=== PATIENT | female | born 1940 | race Caucasian/White ===

== ENCOUNTER 2017-06-15 09:45 | Emergency (ER) | payer OTHER ==
[2017-06-15 10:13] VITALS: BP 138/86; PULSE 62; TEMP 98.1; BMI 25.9
--- NOTE | 2017-06-15 10:18 | PDOC ---
History of Present Illness - General Chief Complaint: Constipation Stated Complaint: CONSTIPATED FOR 4 DAYS Time Seen by Provider: 06/15/17 09:51 - History of Present Illness Initial Comments: 06/15/17 10:14 Complaint: Constipation History of present illness: 76 years old past medical history significant for moderate COPD, hypertension, hyperlipidemia, diverticulitis presents to the emergency department with four-day history of constipation. Patient normally has daily bowel movements but has not had a bowel movement in 4 days. She takes a half pill of Percocet at night for her arthritis over the last few days endorses slightly less fluid consumption the normal. She denies any abdominal pain no fevers no chills very mild nausea but hasn't been able to eat and drink no chest pain or shortness of breath Past History - Travel Traveled outside of the country in the last 30 days: No Close contact w/someone who was outside of country & ill: No - Past Medical History Allergies/Adverse Reactions: Allergies Allergy/AdvReac Type Severity Reaction Status Date / Time cephalexin [Cephalexin] Allergy Severe Difficulty Verified 06/15/17 09:48 Breathing ciprofloxacin [From Cipro] Allergy Severe Difficulty Verified 06/15/17 09:49 Breathing ciprofloxacin HCl Allergy Severe Difficulty Verified 06/15/17 09:49 [From Cipro] Breathing erythromycin base Allergy Severe Difficulty Verified 06/15/17 09:48 [Erythromycin Base] Breathing STATINS-CHOLESTEROL Allergy Severe Difficulty Uncoded 06/15/17 09:49 MEDICATION Breathing Home Medications: Ambulatory Orders Olmesartan Medoxomil [Benicar -] 20 mg PO DAILY 08/18/14 Docusate Sodium [Stool Softener] 50 mg PO Q2D 06/15/17 Ferrous Sulfate [Feosol] 325 mg PO Q2D 06/15/17 Oxycodone HCl/Acetaminophen [Oxycodone-Acetaminophen 5-325] 0.25 mg PO HS Prednisone [Deltasone -] 2.5 mg PO DAILY 06/15/17 Anemia: Yes Asthma: Yes Cancer: No Cardiac Disorders: No COPD: Yes CHF: No Diabetes: No GI Disorders: Yes (diverticulosis) HTN: Yes Hypercholesterolemia: No - Surgical History Abdominal Surgery: Yes (OVARIAN CYST) - Immunization History Immunization Up to Date: Yes - Suicide/Smoking/Psychosocial Hx Smoking Status: No Smoking History: Former smoker Have you smoked in the past 12 months: No Number of Cigarettes Smoked Daily: 0 If you are a former smoker, when did you quit?: 25 YEARS AGO Information on smoking cessation initiated: No Hx Alcohol Use: No Drug/Substance Use Hx: No Substance Use Type: None Review of Systems - Review of Systems Able to Perform ROS?: Yes Comments:: 06/15/17 10:14 ROS: A complete review of 10 out of 10 review of systems is taken and is negative apart from what is previously mentioned below and in the HPI. *Physical Exam - Vital Signs Last Vital Signs Temp Pulse Resp BP Pulse Ox 98.1 F 62 16 138/86 97 06/15/17 09:47 06/15/17 09:47 06/15/17 09:47 06/15/17 09:47 06/15/17 09:47 - Physical Exam Comments: 06/15/17 10:14 Vitals: Triage Vital signs reviewed General Appearance: no acute distress, well nourished well developed, Head: Atraumatic, Neck: Supple;No Nucal rigidity Chest Wall: Nontender Cardiac: Regular rate and rhythym, no murmurs, no rubs, no gallops, Lungs: Clear to auscultation bilateral, good air movement bilaterally, Abdomen: Soft, non distended, normal bowel sounds, non tender to palpation, no rebound no guarding Rectal: No stool in the vault. Not impacted distally Extremities: Full range of motion to all extremities, no cyanosis, clubbing, or edema Skin: Warm and dry, no rashes or lesions, no rash, no petechiae Medical Decision Making - Medical Decision Making 06/15/17 10:15 Well appearing no apparent distress. No abdominal pain on examination. History and examination consistent with constipation likely secondary to dehydration versus opiate use for arthritis We discussed labs and CAT scan at this time given that the patient is well- appearing with no abdominal pain she would prefer to go home try medications at home for constipation if improvement of symptoms she will follow-up with her doctor If symptoms do not improve if the patient develops a fever or any abdominal pain appears she will return to the emergency department for additional workup Findings, the need for follow-up and strict return instructions discussed with patient. 06/15/17 17:23 *DC/Admit/Observation/Transfer Diagnosis at time of Disposition: Constipation Qualifiers: Constipation type: other constipation type Qualified Code(s): K59.09 - Other constipation - Discharge Dispostion Disposition: HOME Condition at time of disposition: Stable Admit: No - Patient Instructions Printed Discharge Instructions: Constipation Additional Instructions: Go to the pharmacy. Purchase one bottle of magnesium citrate. Take as instructed on bottle. If still having symptoms of fullness tomorrow you can also take 1 packet of MiraLAX daily for the next 5 days. Follow-up with your doctor within 2-3 days. Return to the emergency department for any fever abdominal pain severe worsening symptoms or for any concerns.
== END 2017-06-15 10:26 | disposition home or self-care (01) ==
LOC: FER 09:45
DX: K59.09 Other constipation (principal); J44.9 Chronic obstructive pulmonary disease, unspecified; I10 Essential (primary) hypertension; E78.5 Hyperlipidemia, unspecified; Z87.891 Personal history of nicotine dependence; D64.9 Anemia, unspecified
CPT/HCPCS: 99282-25

== ENCOUNTER 2020-05-20 16:43 | Emergency (ER) | payer OTHER ==
--- NOTE | 2020-05-20 16:48 | PDOC ---
History of Present Illness - General Chief Complaint: Chest Pain Stated Complaint: CHEST PAIN Time Seen by Provider: 05/20/20 16:47 History Source: Patient, Family Exam Limitations: No Limitations - History of Present Illness Initial Comments: 80 yo F history asthma/COPD, GERD, HTN, multiple abdominal surgeries presents with abrupt onset L-sided chest pain after a heavy meal. She also states she drank alcohol last night and states it might be connected. She has had prior symptoms of reflux in the past, but this was different today. She felt nauseated to the point that she induced herself to vomit to relieve the symptoms. She states that her chest pain has resolved, but that she has been belching since that time. She also notes loud sounds from her abdomen. Denies diarrhea, constipation, f/c, SOB, leg swelling. Past History - Medical History Allergies/Adverse Reactions: Allergies Allergy/AdvReac Type Severity Reaction Status Date / Time cephalexin [Cephalexin] Allergy Severe Difficulty Verified 05/20/20 16:43 Breathing ciprofloxacin [From Cipro] Allergy Severe Difficulty Verified 05/20/20 16:43 Breathing ciprofloxacin HCl Allergy Severe Difficulty Verified 05/20/20 16:43 [From Cipro] Breathing erythromycin base Allergy Severe Difficulty Verified 05/20/20 16:43 [Erythromycin Base] Breathing STATINS-CHOLESTEROL Allergy Severe Difficulty Uncoded 05/20/20 16:43 MEDICATION Breathing Home Medications: Ambulatory Orders Olmesartan Medoxomil [Benicar -] 20 mg PO DAILY 08/18/14 Docusate Sodium [Stool Softener] 50 mg PO BID 06/15/17 Ferrous Sulfate [Feosol] 325 mg PO DAILY 06/15/17 Oxycodone HCl/Acetaminophen [Oxycodone-Acetaminophen 5-325] 0.25 mg PO HS 06/15/17 predniSONE [Deltasone -] 5 mg PO DAILY 06/15/17 Albuterol Sulfate Inhaler - [Ventolin Hfa Inhaler -] 2 inh PO Q6H PRN 05/20/20 Anemia: Yes Asthma: Yes Cancer: No Cardiac Disorders: No COPD: Yes CHF: No Diabetes: No GI Disorders: Yes (diverticulosis, GERD) HTN: Yes Hypercholesterolemia: No - Surgical History Abdominal Surgery: Yes (OVARIAN CYST) - Immunization History Immunization Up to Date: Yes - Psycho-Social/Smoking History Smoking Status: No Smoking History: Never smoked Have you smoked in the past 12 months: No Number of Cigarettes Smoked Daily: 0 If you are a former smoker, when did you quit?: 25 YEARS AGO Information on smoking cessation initiated: No - Substance Abuse Hx (Audit-C & DAST Scrn) How often the patient has a drink containing alcohol: Never Score: In Men: 4 or > Positive; In Women: 3 or > Positive: 0 Screen Result (Pos requires Nsg. Audit-10AR): Negative In the last yr the pt used illegal drug/Rx for NonMed reason: No Score: Yes response is considered Positive: 0 Screen Result (Positive result requires Nsg. DAST-10): Negative Review of Systems - Review of Systems Able to Perform ROS?: Yes Comments:: GENERAL/CONSTITUTIONAL: No fever or chills. No weakness. HEAD, EYES, EARS, NOSE AND THROAT: No change in vision. No ear pain or discharge. No sore throat. CARDIOVASCULAR: +Chest pain. No shortness of breath. RESPIRATORY: No cough, wheezing, or hemoptysis. GASTROINTESTINAL: No diarrhea or constipation. +nausea. +self-induced vomiting GENITOURINARY: No dysuria, frequency, or change in urination. MUSCULOSKELETAL: No joint or muscle swelling or pain. No neck or back pain. SKIN: No rash. NEUROLOGIC: No headache, vertigo, loss of consciousness, or change in stren gth/sensation. ENDOCRINE: No increased thirst. No abnormal weight change. HEMATOLOGIC/LYMPHATIC: No anemia, easy bleeding, or history of blood clots. ALLERGIC/IMMUNOLOGIC: No hives or skin allergy. *Physical Exam - Vital Signs Last Vital Signs Temp Pulse Resp BP Pulse Ox 98.1 F 104 H 18 158/106 H 98 05/20/20 16:43 05/20/20 16:43 05/20/20 16:43 05/20/20 16:43 05/20/20 16:43 - Physical Exam GENERAL: Awake, alert, and fully oriented, in no acute distress. Appears anxious, belching. HEAD: No signs of trauma EYES: PERRLA, EOMI, sclera anicteric, conjunctiva clear ENT: Auricles normal inspection, hearing grossly normal, nares patent, oropharynx clear without exudates. Moist mucosa NECK: Normal ROM, supple, no lymphadenopathy, JVD, or masses LUNGS: Breath sounds equal, clear to auscultation bilaterally. No wheezes, and no crackles HEART: Regular rate and rhythm, normal S1 and S2, no murmurs, rubs or gallops ABDOMEN: Soft, nontender, +hyperactive bowel sounds. No guarding, no rebound. No masses EXTREMITIES: Normal range of motion, no edema. No clubbing or cyanosis. No cor ds, erythema, or tenderness NEUROLOGICAL: Cranial nerves II through XII grossly intact. Normal speech, normal gait. Motor and sensation intact SKIN: Warm, dry, normal turgor, no rashes or lesions noted. Heart Score/ECG Review - ECG Impressions Comment:: EKG read 16:52- poss slight ST elevation in aVR, slight depression in V1 EKG read 16:56- R-sided EKG, findings in aVR again noted, V4R concave down with questionable slight elevation, less than 1mm ED Treatment Course - LABORATORY CBC & Chemistry Diagram: 05/20/20 17:17 05/20/20 16:49 Medical Decision Making - Medical Decision Making 05/20/20 16:58 Patient signed out to Dr. Chavraria at shift change. Initial EKG showed poss ALBINO in aVR, repeated, and still appeared subtle, less than 1 mm. Right-sided EKG was done, V4R noted to be concave down, but less than 1 mm elevation. Similar shape to prior EKG. We discussed at time of handoff, will await labs. Discharge - Discharge Information Problems reviewed: Yes Clinical Impression/Diagnosis: Chest pain Qualifiers: Chest pain type: other chest pain Qualified Code(s): R07.89 - Other chest pain Condition: Stable Disposition: HOME - Follow up/Referral - Patient Discharge Instructions Patient Printed Discharge Instructions: DI for Chest Pain Additional Instructions: 1) Please follow-up with your primary care doctor in the next 1-2 days. Please call tomorrow for for any urgent issues. 2) You were given a copy of the tests performed today. Please bring the results with you and review them with your primary care doctor. Your laboratory / imaging results were normal, including your cardiac enzymes and blood work. your chest x ray shows hiatal hernia, otherwise no acute process 3) If you have any worsening of symptoms or any other concerns please return to the ED immediately. Return if worsening symptoms including fevers, headache, vomiting, visual or hearing disturbances, abdominal pain, chest pain, shortness of breath, syncope, dehydration, inability to take things by mouth/vomiting, altered mental status, or worsening concerning symptoms. 4) Please continue taking your home medications as directed. Stay well hydrated and rest adequately. Make an appointment. If you cannot follow-up with your primary care doctor please return to the ED - Post Discharge Activity
[2020-05-20 16:51] VITALS: TEMP 98.1; BMI 24.0
--- OUTSIDE RECORDS SUMMARY | 2020-05-20 16:54 | XMS ---
:1940 Author Organization [facility] Support Name Relationship Address Phone RE Unavailable Unavailable Unavailable GONZALO MAGUIRE DAUGHTER [address] [place] [address] Re-disclosure Warning The records that you are about to access may contain information from federally- assisted alcohol or drug abuse programs. If such information is present, then the following federally mandated warning applies: This information has been disclosed to you from records protected by federal confidentiality rules (42 CFR part 2). The federal rules prohibit you from making any further disclosure of this information unless further disclosure is expressly permitted by the written consent of the person to whom it pertains or as otherwise permitted by 42 CFR part 2. A general authorization for the release of medical or other information is NOT sufficient for this purpose. The Federal rules restrict any use of the information to criminally investigate or prosecute any alcohol or drug abuse patient.The records that you are about to access may contain highly sensitive health information, the redisclosure of which is protected by Article 27-F of the [facility] Public Health law. If you continue you may haveaccess to information: Regarding HIV / AIDS; Provided by facilities licensed or operated by the [facility] Office of Mental Health; or Provided by the [facility] Office for People With Developmental Disabilities. If such information is present, then the following [facility] mandated warning applies: This information has been disclosed to you from confidential records which are protected by state law. State law prohibits you from making any further disclosure of this information without the specific written consent of the person to whom it pertains, or as otherwise permitted by law. Any unauthorized further disclosure in violation of state law may result in a fine or half-way sentence or both. A general authorization for the release of medical or other information is NOT sufficient authorization for further disclosure. Insurance Providers Payer name Policy type Policy ID Covered Covered constitution party's Policy P mahogany / Coverage constitution party ID relationship to [employer] orm[employer] type darling SELF PAY SP INSURANCE
[2020-05-20 17:27] LABS: BASO % 0.4 % (0-2.0); EOS % 0.6 % (0-4.5); HEMATOCRIT 45.8 % (32.4-45.2); HEMOGLOBIN 15.9 GM/dl (10.7-15.3); LYMPH % 24.5 % (8-40); MCH 33.2 pg (25.7-33.7); MCHC 34.7 g/dl (32.0-36.0); MEAN CELL VOLUME 95.5 fl (80-96); MEAN PLT VOLUME 8.6 fl (7.5-11.1); MONO % 4.6 % (3.8-10.2); NEUT % 69.9 % (42.8-82.8); PLATELET COUNT 220 K/MM3 (134-434); RBC 4.79 M/mm3 (3.60-5.2); RDW 12.3 % (11.6-15.6); WHITE BLOOD COUNT 6.8 K/mm3 (4.0-10.8)
[2020-05-20] MEDS ORDERED: METOPROLOL TARTRATE 25 MG TABLET (FP) PO ONE (17:28)
[2020-05-20] MEDS ORDERED: ASPIRIN 81 MG CHEWABLE TABLETS PO ONE (17:28)
[2020-05-20] MEDS ORDERED: ASPIRIN 81 MG CHEWABLE TABLETS ONE (17:30)
[2020-05-20] MEDS ORDERED: METOPROLOL TARTRATE 50 MG TABLET (FP) ONE (17:30)
[2020-05-20 17:35] LABS: INR 1.14 (0.82-1.09); PROTHROMBIN TIME (PATIENT) 12.7 SEC (10.2-13.0)
[2020-05-20 17:37] LABS: ALBUMIN 4.1 g/dl (3.4-5.0); BILIRUBIN,TOTAL 1.2 mg/dl (0.2-1); CALCIUM 9.7 mg/dl (8.5-10); POTASSIUM 4.2 mmol/L (3.5-5.1); TOT PROT 6.4 g/dl (6.4-8.2)
[2020-05-20] MEDS ORDERED: PANTOPRAZOLE 40 MG TABLET PO ONE (17:38)
[2020-05-20] MEDS ORDERED: PANTOPRAZOLE 40 MG TABLET ONE (17:38)
--- NOTE | 2020-05-20 18:26 | PDOC ---
*Physical Exam - Vital Signs Last Vital Signs Temp Pulse Resp BP Pulse Ox 98.1 F 92 H 18 142/73 99 05/20/20 16:43 05/20/20 18:17 05/20/20 18:17 05/20/20 18:17 05/20/20 18:17 ED Treatment Course - LABORATORY CBC & Chemistry Diagram: 05/20/20 17:17 05/20/20 16:49 - ADDITIONAL ORDERS Additional order review: Laboratory Results 05/20/20 05/20/20 05/20/20 16:49 16:49 16:49 PT with INR 12.7 INR 1.14 Sodium 138 Potassium 4.2 Chloride 103 Carbon Dioxide 25 Anion Gap 10 BUN 23.0 H Creatinine 1.0 Est GFR (CKD-EPI)AfAm 62.05 Est GFR (CKD-EPI)NonAf 53.54 Random Glucose 173 H Calcium 9.7 Total Bilirubin 1.2 H AST 25 ALT 22 Alkaline Phosphatase 64 Troponin I < 0.03 Total Protein 6.4 Albumin 4.1 05/20/20 17:17 RBC 4.79 MCV 95.5 MCHC 34.7 RDW 12.3 D MPV 8.6 Neutrophils % 69.9 Lymphocytes % 24.5 Monocytes % 4.6 Eosinophils % 0.6 Basophils % 0.4 - Medications Given in the ED: ED Medications Discontinued Medications Generic Name Dose Route Start Last Admin Trade Name Freq PRN Reason Stop Dose Admin Aspirin 324 mg 05/20/20 17:28 05/20/20 17:35 Asa - PO 05/20/20 17:29 324 mg ONCE ONE Administration Metoprolol Tartrate 25 mg 05/20/20 17:28 05/20/20 17:35 Lopressor - PO 05/20/20 17:29 25 mg ONCE ONE Administration Pantoprazole Sodium 40 mg 05/20/20 17:38 05/20/20 17:40 Protonix - PO 05/20/20 17:39 40 mg ONCE ONE Administration Medical Decision Making - Medical Decision Making 05/20/20 18:19 80-year-old woman was seen by Dr. Barker initially with complaint of substernal chest pain. She was signed out to me at [address] Barker. Patient has a history of COPD, and a large hiatal hernia, she is followed in [place] near her home. She had a normal stress test approximately 2 years ago. She had a normal echocardiogram, per her report last spring. She typically gets hiatal hernia symptoms with tightness in the xiphoid region after overeating. Today she had a large meal and then had an after meal drink, at which time she developed a severe attack of her reflux. The reflux symptoms manifested as subxiphoid pulling tightness, associated with belching and nausea. There was no radiation of the pain. There was no diaphoresis. There were no palpitations. There was no dizziness. While the pulling sensation and the location of the pain is typical for her reflux, this time it was more severe than usual. Upon arrival in the ED, the symptoms were resolving. The total duration of symptoms was approximately 20 minutes. On examination, the lungs are clear with good air entry bilaterally. The heart is regular rhythm, borderline tachycardia around 100 bpm. Abdomen is soft and nontender. Extremities are warm and well perfused with good pulses throughout, no pitting edema. EKG is reviewed. Impression: Symptoms are typical for a reflux attack. However, given patient's age, cardiac etiology to be ruled out. Plan is for 2 sets of cardiac enzymes, serial EKGs, and reevaluation. 05/20/20 19:22 Repeat troponin pending. Patient asymptomatic. Repeat blood pressure has normalized. EKG #2 shows normal sinus rhythm at a rate of 89 bpm. The axis is normal. The intervals are normal. There is no acute ST elevation or depression. There is possible atrial enlargement. There are no significant changes from EKG done earlier today, or a comparison EKG from August 18, 2014. Patient to be discharged to follow-up with her tong carrier if repeat troponin is negative. Patient endorsed to Dr. Lori Sullivan. Discharge - Discharge Information Problems reviewed: Yes Clinical Impression/Diagnosis: Chest pain Qualifiers: Chest pain type: other chest pain Qualified Code(s): R07.89 - Other chest pain; R07.8 - Other chest pain Condition: Guarded - Follow up/Referral - Patient Discharge Instructions - Post Discharge Activity
--- NOTE | 2020-05-20 19:48 | PDOC ---
*Physical Exam - Vital Signs Last Vital Signs Temp Pulse Resp BP Pulse Ox 98.1 F 86 18 126/72 99 05/20/20 16:43 05/20/20 19:04 05/20/20 19:04 05/20/20 19:04 05/20/20 19:04 ED Treatment Course - LABORATORY CBC & Chemistry Diagram: 05/20/20 17:17 05/20/20 16:49 - ADDITIONAL ORDERS Additional order review: Laboratory Results 05/20/20 05/20/20 05/20/20 16:49 16:49 16:49 PT with INR 12.7 INR 1.14 Sodium 138 Potassium 4.2 Chloride 103 Carbon Dioxide 25 Anion Gap 10 BUN 23.0 H Creatinine 1.0 Est GFR (CKD-EPI)AfAm 62.05 Est GFR (CKD-EPI)NonAf 53.54 Random Glucose 173 H Calcium 9.7 Total Bilirubin 1.2 H AST 25 ALT 22 Alkaline Phosphatase 64 Troponin I < 0.03 Total Protein 6.4 Albumin 4.1 05/20/20 17:17 RBC 4.79 MCV 95.5 MCHC 34.7 RDW 12.3 D MPV 8.6 Neutrophils % 69.9 Lymphocytes % 24.5 Monocytes % 4.6 Eosinophils % 0.6 Basophils % 0.4 - Medications Given in the ED: ED Medications Discontinued Medications Generic Name Dose Route Start Last Admin Trade Name Freq PRN Reason Stop Dose Admin Aspirin 324 mg 05/20/20 17:28 05/20/20 17:35 Asa - PO 05/20/20 17:29 324 mg ONCE ONE Administration Metoprolol Tartrate 25 mg 05/20/20 17:28 05/20/20 17:35 Lopressor - PO 05/20/20 17:29 25 mg ONCE ONE Administration Pantoprazole Sodium 40 mg 05/20/20 17:38 05/20/20 17:40 Protonix - PO 05/20/20 17:39 40 mg ONCE ONE Administration Medical Decision Making - Medical Decision Making 05/20/20 19:46 Vital Signs Temp Pulse Resp BP Pulse Ox 98.1 F 86 18 126/72 99 05/20/20 16:43 05/20/20 19:04 05/20/20 19:04 05/20/20 19:04 05/20/20 19:04 pt signed out from Dr Chavarria at 7pm pending repeat trop in summary initial labs and lytes wnl, reassuring initial trop is neg, EKGs were repeated with NSR, no st segment elevations or depressions pt has history of hiatal hernia given ppi and gi cocktail here with relief on reassessment, feels improved, no cp, symptom improved 2nd trop is negative no recurrence. Pt to be discharged in stable condition. Patient and family made aware of clinical impression, treatment recommendations and disposition plan, return precautions discussed (including but not limited to new or persistent/worsening symptoms, pain, fevers, or signs of infection, chest pain, respiratory distress, inability to tolerate oral intake, dehydration, syncope, or neurologic changes). Follow up with PMD and/or specialist as recommended, follow up information provided, take medications as instructed for duration of time. continue with supportive care, avoid triggers and precipitants. All questions answered to patient's satisfaction and expressed understanding and comfort with this. At the time of discharge, the patient is alert, clinically improved, tolerating po and verbalizes understanding of instructions, satisfied with the care received and felt comfortable with the plan. Patient does not suffer from an acute life- threatening medical condition at this time and is safe for outpatient follow- up. 05/20/20 20:00 Discharge - Discharge Information Problems reviewed: Yes Clinical Impression/Diagnosis: Chest pain Qualifiers: Chest pain type: other chest pain Qualified Code(s): R07.89 - Other chest pain Condition: Stable Disposition: HOME - Admission No - Follow up/Referral - Patient Discharge Instructions Patient Printed Discharge Instructions: DI for Chest Pain Additional Instructions: 1) Please follow-up with your primary care doctor in the next 1-2 days. Please call tomorrow for for any urgent issues. 2) You were given a copy of the tests performed today. Please bring the results with you and review them with your primary care doctor. Your laboratory / i maging results were normal, including your cardiac enzymes and blood work. your chest x ray shows hiatal hernia, otherwise no acute process 3) If you have any worsening of symptoms or any other concerns please return to the ED immediately. Return if worsening symptoms including fevers, headache, vom iting, visual or hearing disturbances, abdominal pain, chest pain, shortness of breath, syncope, dehydration, inability to take things by mouth/vomiting, altered mental status, or worsening concerning symptoms. 4) Please continue taking your home medications as directed. Stay well hydrated and rest adequately. Make an appointment. If you cannot follow-up with your primary care doctor please return to the ED - Post Discharge Activity
[2020-05-20 20:23] VITALS: BP 128/65; PULSE 85
--- NOTE | 2020-05-21 14:09 | EKG ---
Test Reason : Blood Pressure : / mmHG Vent. Rate : 089 BPM Atrial Rate : 089 BPM P-R Int : 156 ms QRS Dur : 068 ms QT Int : 346 ms P-R-T Axes : 056 076 047 degrees QTc Int : 420 ms NORMAL SINUS RHYTHM POSSIBLE LEFT ATRIAL ENLARGEMENT BORDERLINE ECG WHEN COMPARED WITH ECG OF 17-MAY-2014 05:29, NO SIGNIFICANT CHANGE WAS FOUND Confirmed by ARACELIS QUINN MD ([id number]) on 05/21/2020 2:09:02 PM Referred By: Confirmed By:ARACELIS QUINN MD
--- NOTE | 2020-05-21 14:09 | EKG ---
Test Reason : Blood Pressure : / mmHG Vent. Rate : 105 BPM Atrial Rate : 105 BPM P-R Int : 154 ms QRS Dur : 072 ms QT Int : 330 ms P-R-T Axes : 048 084 049 degrees QTc Int : 436 ms SINUS TACHYCARDIA POSSIBLE LEFT ATRIAL ENLARGEMENT BORDERLINE ECG WHEN COMPARED WITH ECG OF 17-MAY-2014 05:29, NO SIGNIFICANT CHANGE WAS FOUND Confirmed by ARACELIS QUINN MD ([id number]) on 05/21/2020 2:09:04 PM Referred By: Confirmed By:ARACELIS QUINN MD
== END 2020-05-20 20:15 | disposition home or self-care (01) ==
LOC: FER 16:43
DX: R07.89 Other chest pain (principal)
CPT/HCPCS: 36415; 71045-TC-FY; 80053; 84484; 85025; 85610; 93005; 99285-25

== ENCOUNTER 2020-05-29 07:49 | Emergency (ER) | payer OTHER ==
--- NOTE | 2020-05-29 08:04 | PDOC ---
History of Present Illness - General Chief Complaint: Chest Pain Stated Complaint: CHEST PAIN Time Seen by Provider: 05/29/20 07:50 History Source: Patient Exam Limitations: No Limitations - History of Present Illness Initial Comments: 05/29/20 07:53 HPI 80 years old past medical history significant for moderate COPD, hypertension, hyperlipidemia, diverticulitis, GERD, hiatal hernia, presenting with substernal chest pain this morning when she woke up at 530AM. She states she experienced sharp epigastric/substernal chest pain, nonradiating, nonexertional, lasted approximately 5 seconds and resolved. Associated with dizziness/lightheadedness and nausea. no meds were taken. She states this past weekend about 3 days ago she had a "bad bout of diarrhea" where it was watery and brown, nonbloody, associated with lower abdominal pain. Currently no pain, diarrhea resolved spontaneously, which she may have attributed to a roast beef sandwich; now she only complains of suprapubic pressure like she has to urinate. She noted her blood pressure was very elevated this morning, with SBP >200s. She initially planned to go to urgent care for covid testing. She also states she took a dose of amoxicillin in the last few days, which was not her medication. she has not had similar episodes of pain previously, this was the worst. she notes her son recently 05/03/20 and that has caused her some stress. Denies fever, chills, SOB, palpitation, weakness, V, D, bladder and bowel problems, focal weakness/paresthesias, leg swelling/pain, rash. No sick contacts or travel. No new changes in medications. Allergies: cephalosporin, ciprofloxacin, erythromycin Past Medical History/PSH: as above Social history: Lives with family. No tobacco, ETOH or drug use. Meds: as documented in EMR Family history: noncontributory PMD: Review of systems Constitutional: no fevers or chills. No weakness HEENT: no headache No congestion. No visual/hearing disturbances. +dizziness CVS: no syncope. +chest pain Resp: no sob. No cough. Gastrointestinal: no abdominal pain, vomiting, diarrhea. no bloody stools. +nausea Genitourinary: no urinary sx, hematuria. MUSCULOSKELETAL: No joint pain and swelling. No neck or back pain. SKIN: no redness or skin changes, no discharge, no rash. No wounds. Hematologic: no easy bruising/bleeding. NEUROLOGIC: No headache, LOC or altered mental status. No weakness, numbness or tingling. Psych: no anxiety or depression Allergic/Immunologic: +medication allergies All other systems reviewed and negative, or as documented in HPI. Physical exam General: awake and alert, NAD. HEENT: NCAT, PERRL, EOMI, clear conjunctiva, anicteric, moist mucus membranes, clear oropharynx, no oral lesions.. Neck: neck supple, FROM Resp: CTAB, normal and even respirations, no respiratory distress CVS: RRR, no murmurs, 2+ peripheral pulses throughout, no peripheral edema Abdomen: soft, NTND, no rebound or guarding. Back: nontender, normal inspection and ROM MSK: no edema, VIVEROS x4, ROM intact. No clubbing or cyanosis. normal bulk and tone. Extremities: no calf tenderness Neuro: alert, oriented appropriately; no focal neurologic deficits Psych: Calm and cooperative Skin: warm and well perfused, cap refill <2 sec, normal color, no rash or skin discoloration. 05/29/20 08:05 05/29/20 08:23 05/29/20 08:33 Past History - Medical History Allergies/Adverse Reactions: Allergies Allergy/AdvReac Type Severity Reaction Status Date / Time cephalexin [Cephalexin] Allergy Severe Difficulty Verified 05/29/20 07:50 Breathing ciprofloxacin [From Cipro] Allergy Severe Difficulty Verified 05/29/20 07:50 Breathing ciprofloxacin HCl Allergy Severe Difficulty Verified 05/29/20 07:50 [From Cipro] Breathing erythromycin base Allergy Severe Difficulty Verified 05/29/20 07:50 [Erythromycin Base] Breathing STATINS-CHOLESTEROL Allergy Severe Difficulty Uncoded 05/29/20 07:50 MEDICATION Breathing Home Medications: Ambulatory Orders Olmesartan Medoxomil [Benicar -] 20 mg PO DAILY 08/18/14 Ferrous Sulfate [Feosol] 325 mg PO DAILY 06/15/17 Oxycodone HCl/Acetaminophen [Oxycodone-Acetaminophen 5-325] 0.25 mg PO HS 06/15/17 predniSONE [Deltasone -] 2.5 mg PO DAILY 06/15/17 Fluticasone Furoate [Arnuity Ellipta] 0 mcg IH DAILY 10/06/20 Nitrofurantoin Monohyd/M-Cryst [Macrobid -] 100 mg PO BID #10 capsule 05/29/20 Ondansetron [Zofran *Odt*] 4 mg SL TID PRN #9 od.tablet 05/29/20 Anemia: Yes Asthma: Yes Cancer: No Cardiac Disorders: No COPD: Yes CHF: No Diabetes: No GI Disorders: Yes (diverticulosis) HTN: Yes Hypercholesterolemia: No - Surgical History Abdominal Surgery: Yes (OVARIAN CYST) - Immunization History Immunization Up to Date: Yes - Psycho-Social/Smoking History Smoking Status: No Smoking History: Former smoker Have you smoked in the past 12 months: No Number of Cigarettes Smoked Daily: 0 If you are a former smoker, when did you quit?: 25 YEARS AGO *Physical Exam - Vital Signs Last Vital Signs Temp Pulse Resp BP Pulse Ox 98.7 F 81 18 122/66 100 05/29/20 07:49 05/29/20 11:49 05/29/20 11:49 05/29/20 11:49 05/29/20 11:49 Heart Score/ECG Review - History History: Slightly suspicious - Electrocardiogram EKG: Normal - Age Age: >/= 65 - Risk Factors Risk Factors Heart Score: Yes Hx Hypercholesterolemia, Yes Hx Hypertension Based on the list above the patient has:: 1-2 risk factors - Troponin Troponin: </= normal limit - Score Heart Score - Total: 3 #1 ECG reviewed & interpreted by me at: 08:00 General ECG Interpretation: Sinus Rhythm, Normal Rate, Normal Intervals 05/29/20 08:08 EKG normal sinus rhythm at 75 bpm, no interval abnormalities, narrow QRS, ST and T wave segments and morphology normal. unchanged from prior #2 ECG reviewed & interpreted by me at: 11:10 General ECG Interpretation: Sinus Rhythm, Normal Rate, Normal Intervals Compared to previous ECG there are: No significant change 05/29/20 11:10 EKG normal sinus rhythm 78 beats per minute, no interval abnormalities, narrow QRS, ST and T wave segments and morphology normal. ED Treatment Course - LABORATORY CBC & Chemistry Diagram: 05/29/20 08:04 05/29/20 08:00 - ADDITIONAL ORDERS Additional order review: Laboratory Results 05/29/20 05/29/20 05/29/20 11:00 08:10 08:00 Sodium Potassium Chloride Carbon Dioxide Anion Gap BUN Creatinine Est GFR (CKD-EPI)AfAm Est GFR (CKD-EPI)NonAf Random Glucose Calcium Magnesium Total Bilirubin AST ALT Alkaline Phosphatase Creatine Kinase 66 Troponin I < 0.03 Total Protein Albumin Triglycerides Cholesterol Total LDL Cholesterol HDL Cholesterol Urine Color Yellow Urine Appearance Clear Urine pH 5.5 Urine Protein Negative Urine Glucose (UA) Negative Urine Ketones Negative Urine Blood Trace-intact Urine Nitrite Negative Urine Bilirubin Negative Urine Urobilinogen 0.2 Ur Leukocyte Esterase Trace H Urine RBC 0-2 Urine WBC 0-2 Ur Transition Epith Cell Few Calcium Oxalate Crystal Few 05/29/20 05/29/20 08:00 08:00 Sodium 138 Potassium 3.9 Chloride 103 Carbon Dioxide 26 Anion Gap 9 BUN 15.0 Creatinine 0.9 Est GFR (CKD-EPI)AfAm 70.48 Est GFR (CKD-EPI)NonAf 60.81 Random Glucose 112 H Calcium 9.7 Magnesium 1.8 Total Bilirubin 0.9 AST 21 ALT 18 Alkaline Phosphatase 58 Creatine Kinase Troponin I < 0.03 Total Protein 6.3 L Albumin 4.0 Triglycerides 121 Cholesterol 254 H Total LDL Cholesterol 144 H HDL Cholesterol 86 H Urine Color Urine Appearance Urine pH Urine Protein Urine Glucose (UA) Urine Ketones Urine Blood Urine Nitrite Urine Bilirubin Urine Urobilinogen Ur Leukocyte Esterase Urine RBC Urine WBC Ur Transition Epith Cell Calcium Oxalate Crystal 05/29/20 08:04 RBC 4.58 MCV 96.6 H MCHC 34.1 RDW 12.3 MPV 8.5 Neutrophils % 48.5 Lymphocytes % 37.1 Monocytes % 8.6 Eosinophils % 2.9 Basophils % 2.9 H - RADIOLOGY Radiology Studies Ordered: Category Date Time Status CHEST X-RAY PORTABLE* [RAD] Stat Radiology 05/29/20 07:51 Completed - Medications Given in the ED: ED Medications Discontinued Medications Generic Name Dose Route Start Last Admin Trade Name Freq PRN Reason Stop Dose Admin Al Hydroxide/Mg Hydroxide 30 ml 05/29/20 09:11 05/29/20 09:19 Mylanta Oral Suspension - PO 05/29/20 09:12 30 ml ONCE ONE Administration Famotidine/Sodium Chloride 20 mg in 50 mls @ 100 mls/hr 05/29/20 09:11 05/29/20 09:19 Pepcid 20 Mg Premixed Ivpb - IVPB 05/29/20 09:40 100 mls/hr ONCE ONE Administration Ondansetron HCl 4 mg 05/29/20 09:11 05/29/20 09:19 Zofran Injection IVPUSH 05/29/20 09:12 4 mg ONCE ONE Administration Medical Decision Making - Medical Decision Making 05/29/20 08:07 Vital Signs Temp Pulse Resp BP Pulse Ox 98.7 F 62 16 180/92 H 100 05/29/20 07:49 05/29/20 07:49 05/29/20 07:49 05/29/20 07:49 05/29/20 07:49 vitals reviewed, mildly hypertensive. normal sats, no tachycardia. afebrile no current cp or sob currently. DDx chest pain: ACS, coronary vasospasm, NSTEMI, arrhythmia, unstable angina, PE, dissection, PUD, esophageal spasm, GERD, gastritis, costochondritis, pneumonia, pleurisy, pericarditis/myocarditis. dehydration, electrolyte/metabolic derangements. Considered but clinically doubt based on HPI and PE: Low suspicion for pulmonary embolism or dissection. Interpreted by ED Physician: CXR (1 view): no acute abnormality: no infiltrates, bones appear intact and structures normal alignment, cardiac silhouette within normal limits. no free air under diaphragm, no pneumothorax. hiatal hernia present EKG normal sinus rhythm at 75 bpm, no interval abnormalities, narrow QRS, ST and T wave segments and morphology normal. unchanged from prior Chest pain HEART score 3 which denotes low risk for MACE at 4-6 wks, pt is currently asymptomatic she had a similar episode of cp about 1.5 weeks ago, her current sx that woke her up this morning was not constant, unremitting, radiating or typical of ACS she has history of hiatal hernia and GERD, sx may suggest less likely cardiac gi gil resolution and findings 05/29/20 09:12 initial labs and lytes wnl. neg trop x1 will repeat bp improved down to 149/87, no events on monitor lipid panel mildly abnormal, told to f/u primary doctor will given zofran for mild nausea, pepcid and maalox, as she is burping and feeling gassy. UA may have s/s consistent with UTI, with leuk esterase and suprapubic pressure sensation. will f/u culture, treat with macrobid for uncomplicated cystitis. rpt trop and ekg unchanged, neg trop unlikely cardiac more likely gerd/hiatal hernia sx, diet modifications and reassurance and lifestyle modifications advised remains asymptomatic, feels well. no cp or sob. Pt to be discharged in stable condition. Patient made aware of clinical impression, treatment recommendations and disposition plan, return precautions discussed (including but not limited to new or persistent/worsening symptoms, pain, fevers, or signs of infection, chest pain, respiratory distress, inability to tolerate oral intake, dehydration, syncope, or neurologic changes). Follow up with PMD and/or specialist as recommended, follow up information provided, take medications as instructed for duration of time. continue with supportive care, avoid triggers and precipitants. All questions answered to patient's satisfaction and expressed understanding and comfort with this. At the time of discharge, the patient is alert, clinically improved, tolerating po and verbalizes understanding of instructions, satisfied with the care received and felt comfortable with the plan. Patient does not suffer from an acute life- threatening medical condition at this time and is safe for outpatient follow- up. 05/29/20 11:09 05/29/20 14:04 05/29/20 14:05 Discharge - Discharge Information Problems reviewed: Yes Clinical Impression/Diagnosis: UTI (urinary tract infection) Chest pain Qualifiers: Chest pain type: unspecified Qualified Code(s): R07.9 - Chest pain, unspecified Condition: Improved Disposition: HOME - Admission No - Additional Discharge Information Prescriptions: Nitrofurantoin Monohyd/M-Cryst [Macrobid -] 100 mg PO BID #10 capsule Ondansetron [Zofran *Odt*] 4 mg SL TID PRN #9 od.tablet PRN Reason: nausea/vomiting - Follow up/Referral Referrals: Samantha Wynne MD [Staff Physician] - - Patient Discharge Instructions Patient Printed Discharge Instructions: DI for Hiatal Hernia, DI for Chest Pain, GERD Diet Additional Instructions: 1) Please follow-up with your primary care doctor in the next 1-2 days. Please call tomorrow for for any urgent issues. 2) You were given a copy of the tests performed today. Please bring the results with you and review them with your primary care doctor. Your laboratory / imaging results were normal, you may have a urinary tract infection, will be treated with antibiotics and follow up on your urine culture in 24-48 hours follow up on your COVID testing also in 24-48 hours 3) If you have any worsening of symptoms or any other concerns please return to the ED immediately. Return if worsening symptoms including fevers, headache, vomiting, visual or hearing disturbances, abdominal pain, chest pain, shortness of breath, syncope, dehydration, inability to take things by mouth/vomiting, altered mental status, or worsening concerning symptoms. 4) Please continue taking your home medications as directed. your medications on discharge include zofran three times a day as needed for nausea. macrobid twice a day x 5 days, this is for the urinary tract infection. do not drink alcohol. take with food. may cause nausea, vomiting, diarrhea and dizziness. Stay well hydrated and rest adequately. Make an appointment. If you cannot follow-up with your primary care doctor please return to the ED - Post Discharge Activity Vital Signs - Vital Signs Vital signs refused: No Pulse Rate: 68 Blood Pressure: 149/87 BP Location: Right Arm Blood Pressure position: Supine
[2020-05-29 08:07] VITALS: TEMP 98.7; BMI 25.4
--- OUTSIDE RECORDS SUMMARY | 2020-05-29 08:10 | XMS ---
:1940 Author Organization [facility] Support Name Relationship Address Phone RE Unavailable Unavailable Unavailable GONZALO MAGUIRE DAUGHTER [address] [facility] [phone] [place] [address] GONZALO MAGUIRE Child [address] [facility] [address] [place] [place] [address] Re-disclosure Warning The records that you are [...] is protected by Article 27-F of the [facility] Public Health law. If you continue you may haveaccess to information: Regarding HIV / AIDS; Provided by facilities licensed or operated by the [facility] Office of Mental Health; or Provided by the [facility] Office for People With Developmental Disabilities. If such information is present, then the following [facility] mandated warning applies: This information has been [...] law may result in a fine or mcc sentence or both. A general authorization for the release of medical or other information is NOT sufficient authorization for further disclosure. Insurance Providers Payer name Policy type Policy ID Covered Covered libertarian's Policy P mahogany / Coverage libertarian ID relationship to Darling Inf ormation type darling COLRAIN [id number] HEALTHCARE (MEDICARE) SELF PAY SP INSURANCE
[2020-05-29 08:46] LABS: BASO % 2.9 % (0-2.0); EOS % 2.9 % (0-4.5); HEMATOCRIT 44.2 % (32.4-45.2); HEMOGLOBIN 15.1 GM/dl (10.7-15.3); LYMPH % 37.1 % (8-40); MCH 32.9 pg (25.7-33.7); MCHC 34.1 g/dl (32.0-36.0); MEAN CELL VOLUME 96.6 fl (80-96); MEAN PLT VOLUME 8.5 fl (7.5-11.1); MONO % 8.6 % (3.8-10.2); NEUT % 48.5 % (42.8-82.8); PLATELET COUNT 245 K/MM3 (134-434); RBC 4.58 M/mm3 (3.60-5.2); RDW 12.3 % (11.6-15.6); WHITE BLOOD COUNT 6.8 K/mm3 (4.0-10.8)
[2020-05-29 08:59] LABS: BILIRUBIN,TOTAL 0.9 mg/dl (0.2-1); CALCIUM 9.7 mg/dl (8.5-10); CREATININE 0.9 mg/dl (0.55-1.3); MAGNESIUM 1.8 mg/dL (1.8-2.4); POTASSIUM 3.9 mmol/L (3.5-5.1); TOT PROT 6.3 g/dl (6.4-8.2)
[2020-05-29] MEDS ORDERED: MAG HYDROX/AL HYDROX/SIMETH 30 ML UNIT-DOSE CUP PO ONE (09:11)
[2020-05-29] MEDS ORDERED: ONDANSETRON 4 MG/2 ML VIAL IVPUSH ONE (09:11)
[2020-05-29] MEDS ORDERED: FAMOTIDINE 20 MG/50 ML IVPB 20 MG/50 ML MG IVPB ONE ×2 (09:11→09:13)
[2020-05-29] MEDS ORDERED: ONDANSETRON 4 MG/2 ML VIAL ONE (09:13)
[2020-05-29] MEDS ORDERED: MAG HYDROX/AL HYDROX/SIMETH 30 ML UNIT-DOSE CUP ONE (09:13)
[2020-05-29 09:45] LABS: CALCIUM OXALATE CRYSTALS FEW /hpf (NONE SEEN); EPITHELIAL CELLS FEW /hpf
--- NOTE | 2020-05-29 12:27 | EKG ---
Test Reason : Blood Pressure : / mmHG Vent. Rate : 078 BPM Atrial Rate : 078 BPM P-R Int : 156 ms QRS Dur : 080 ms QT Int : 376 ms P-R-T Axes : 057 077 062 degrees QTc Int : 428 ms NORMAL SINUS RHYTHM POSSIBLE LEFT ATRIAL ENLARGEMENT BORDERLINE ECG WHEN COMPARED WITH ECG OF 29-MAY-2020 07:59, NO SIGNIFICANT CHANGE WAS FOUND Confirmed by Clarence Jacobo ([id number]) on 05/29/2020 12:26:49 PM Referred By: TIM PATEL Confirmed By:Clarence Jacobo
--- NOTE | 2020-05-29 12:27 | EKG ---
Test Reason : Blood Pressure : / mmHG Vent. Rate : 075 BPM Atrial Rate : 075 BPM P-R Int : 154 ms QRS Dur : 074 ms QT Int : 366 ms P-R-T Axes : 065 070 056 degrees QTc Int : 408 ms NORMAL SINUS RHYTHM NORMAL ECG WHEN COMPARED WITH ECG OF 20-MAY-2020 18:44, NO SIGNIFICANT CHANGE WAS FOUND Confirmed by Clarence Jacobo ([id number]) on 05/29/2020 12:26:51 PM Referred By: TIM PATEL Confirmed By:Clarence Jacobo
[2020-05-29 14:05] VITALS: BP 149/87; PULSE 68
== END 2020-05-29 11:57 | disposition home or self-care (01) ==
LOC: FER 07:49
PROC: 3E033GC Introduction of Other Therapeutic Substance into Peripheral Vein, Percutaneous Approach (ICD-10-PCS; principal; 2020-05-29)
DX: R07.9 Chest pain, unspecified (principal); N39.0 Urinary tract infection, site not specified
CPT/HCPCS: 36415; 71045-TC-FY; 80053; 80061; 81003; 81015; 82550; 83735; 84484; 85025; 93005; 99285-25; C9803; U0003

== ENCOUNTER 2023-06-09 06:37 | Emergency (ER) | payer OTHER ==
[2023-06-09 06:51] VITALS: BP 177/95; PULSE 78; RESP 18; TEMP 98.4; BMI 24.7
[2023-06-09] MEDS ORDERED: ALBUTEROL SO4 2.5/IPRATROPIUM 0.5 INH SOL 3 ML VIAL.NEB. NEB ONE ×2 (07:24→07:45)
[2023-06-09] MEDS ORDERED: ACETAMINOPHEN 325 MG TABLET (FP) PO ONE (07:24)
[2023-06-09] MEDS ORDERED: guaiFENesin/CODEINE 10 ML UNIT-DOSE CUPS PO ONE (07:25)
[2023-06-09] MEDS ORDERED: ACETAMINOPHEN 325 MG TABLET (FP) ONE (07:28)
[2023-06-09] MEDS ORDERED: guaiFENesin/CODEINE 10 ML UNIT-DOSE CUPS ONE (07:29)
== END 2023-06-09 09:06 | disposition home or self-care (01) ==
LOC: FER 06:37
PROC: 3E0F7GC Introduction of Other Therapeutic Substance into Respiratory Tract, Via Natural or Artificial Opening (ICD-10-PCS; principal; 2023-06-09)
DX: R51.9 Headache, unspecified (principal); R05.9 Cough, unspecified; R09.81 Nasal congestion; J02.9 Acute pharyngitis, unspecified; M79.10 Myalgia, unspecified site; J40 Bronchitis, not specified as acute or chronic; Z20.822 Contact with and (suspected) exposure to COVID-19
CPT/HCPCS: 0241U-QW; 71045-TC-FY; 94640; 99284-25